=== PATIENT | male | born 1980 | race Caucasian/White ===

== ENCOUNTER 2019-07-12 12:21 | Emergency (ER) | payer OTHER, SELFPAY ==
[2019-07-12 12:35] VITALS: BP 144/76; PULSE 116; RESP 24; TEMP 38.9; O2SAT 96
--- NOTE | 2019-07-12 13:12 | ED.GENADULT ---
HPI - General Adult General Chief complaint: Upper Respiratory Infection Stated complaint: Cold/ Flu symptoms Time Seen by Provider: 07/12/19 13:12 Source: patient and RN notes reviewed Mode of arrival: ambulatory Limitations: no limitations History of Present Illness HPI narrative: This is a 39 years old male presented office for evaluation of flulike symptom for four days. Symptoms include feverish, body aches, achy,and head congestion. He does not smoke. He had [facility] a drug rehab would like a note to show that he was here. Related Data Allergies Allergy/AdvReac Type Severity Reaction Status Date / Time amoxicillin Allergy Unknown Verified 07/12/19 12:46 Review of Systems Review of Systems: Narrative: CONSTITUTIONAL: Reports fever, chills, sweats. ENT: Reports rhinorrhea, congestion, sore throat CARDIOVASCULAR: Denies chest pain, palpitation, edema. RESPIRATORY: Reports bad cough GASTROINTESTINAL: Denies abdominal pain, nausea, vomiting, diarrhea. GENITOURINARY: Denies urinary symptoms or discharge SKIN: Denies rash MUSCULOSKELETAL: Denies acute back pain NEUROLOGIC: Denies lightheaded PMFSH Social History Social History (Updated 07/12/19 @ 13:20 by CARLINE Tiwari) Smoking status: Never smoker Comments At time of signature, I agree with nursing past medical, surgical, social and family history. There is no relevant family history pertinent to the presenting complaint. Exam Narrative: Exam Narrative: GENERAL: This is a well-nourished, well-developed patient, ill apparent but not in acute distress. EYES: Sclera clear/white. Vision is grossly intact. EARS: External ears normal, auditory canals clear and without drainage, TMs normal without perforation. Hearing grossly intact. NOSE: External nose normal with no obvious nasal discharge, nares without redness, no rhinorrhea. THROAT: Mucous membranes moist, posterior pharynx pink with drainage. NECK: Neck supple, non-tender without lymphadenopathy, masses or thyromegaly. CARDIOVASCULAR: Regular rate and rhythm without murmurs, gallops, or rubs. RESPIRATORY: Clear to auscultation. Breath sounds equal bilaterally. Occasional cough noted during examination.No wheezes, rales, or rhonchi. GASTROINTESTINAL: Abdomen soft, non-tender, nondistended. Bowel sounds are active. No hepato-splenomegaly, or palpable masses. No guarding. SKIN: warm, intact with no suspicious lesions or rash, good texture and turgor. NEURO: awake, alert, and oriented to person, place and time. There were no obvious focal neurologic abnormalities. Steady gait Aurora Coma Scale Eye Opening: Spontaneous 4 Aurora Coma Scale Motor: Obeys Commands 6 Aurora Coma Scale Verbal: Oriented 5 Course Vital Signs Vital signs: Vital Signs Temperature 102.1 F H 07/12/19 12:35 Pulse Rate 116 H 07/12/19 12:35 Respiratory Rate 24 H 07/12/19 12:35 Blood Pressure 144/76 H 07/12/19 12:35 Pulse Oximetry 96 07/12/19 12:35 Temperature 102.1 F H 07/12/19 13:21 Pulse Rate 116 H 07/12/19 12:35 Respiratory Rate 24 H 07/12/19 12:35 Blood Pressure 144/76 H 07/12/19 12:35 Pulse Oximetry 96 07/12/19 12:35 Medical Decision Making MDM Narrative Medical decision making narrative: Discharge instructions reviewed with patient, as well as provided in writing per nursing staff. The instructions also include specific and strict return/GO TO THE ER as well as f/u information. All questions have been answered, and the patient deny any further questions with discharge and discharge plan. Differential Diagnosis Differential Diagnosis: pneumonia, Allergic Rhinitis, Upper respiratory cough syndrome, Pharyngitis, Sinusitis, Bronchitis, otitis media, viral URI, Asthma/reactive airway disease, influenza Medical Records Medical records reviewed: Yes I reviewed the patient's medical records. Vital Signs Vital Signs: Vital Signs Temperature 102.1 F H 07/12/19 12:35 Pulse Rate 116 H 07/12/19 12:3
[2019-07-12 13:21] VITALS: TEMP 38.9
[2019-07-12] MEDS: ACETAMINOPHEN 325 MG TABLET 650 MG PO (13:21)
== END 2019-07-12 13:27 | disposition home or self-care (01) ==
PROVIDERS: Emergency Provider Nurse Practitioner
DX: J10.1 Influenza due to other identified influenza virus with other respiratory manifestations (principal); I10 Essential (primary) hypertension
CPT/HCPCS: 87081; 87804; 87880; 99203; A9270; G0463